=== PATIENT | female | born 1950 | race Caucasian/White ===

== ENCOUNTER 2023-08-31 08:51 | Outpatient (CLI) | payer OTHER | END 2023-08-31 09:01 | disposition home or self-care (01) | LOC: SONOGRAMA 08:51 | PROVIDERS: ATTEND Obstetrics & Gynecology Gynecology | DX: N85.00 Endometrial hyperplasia, unspecified (principal); N60.12 Diffuse cystic mastopathy of left breast; N60.11 Diffuse cystic mastopathy of right breast; M81.0 Age-related osteoporosis without current pathological fracture; D25.1 Intramural leiomyoma of uterus ==